=== PATIENT | male | born 1980 | race Caucasian/White ===

== ENCOUNTER 2016-08-01 19:15 | Emergency (ER) | payer BC, OTHER ==
[2016-08-01 19:24] VITALS: BP 150/107
--- NOTE | 2016-08-01 19:32 | EDM.PDOC ---
ED HPI GENERAL MEDICAL PROBLEM - General Chief Complaint: ENT Problem Stated Complaint: TOOTHACHE Time Seen by Provider: 08/01/16 19:21 Source of Information: Reports: Patient, RN, RN Notes Reviewed History Limitations: Reports: No Limitations - History of Present Illness INITIAL COMMENTS - FREE TEXT/NARRATIVE: Patient presents to the ED at [facility] complaining of dental pain. Patient states the pain began a few days ago. He states he is scheduled for a root canal on August 18 in [place] with an Machine Or Machinery Mechanic. He complains of upper left jaw pain. He states he feels very nauseated. He has not vomited. He denies any percussion sensitivity when eating. Duration: Constant, Getting Worse Left Upper Tooth/Teeth Pain Score (Numeric/FACES): 10 - Related Data Allergies Allergy/AdvReac Type Severity Reaction Status Date / Time No Known Allergies Allergy Verified 08/01/16 19:24 Home Meds: Home Meds PARoxetine HCl [Paroxetine HCl] 30 mg PO DAILY 08/01/16 [History] Past Medical History Psychiatric History: Reports: Depression ED ROS GENERAL - Review of Systems Review Of Systems: See Below Constitutional: Denies: Fever, Chills, Weakness HEENT: Reports: Dental Pain Respiratory: Denies: Shortness of Breath, Cough Cardiovascular: Denies: Chest Pain, Palpitations GI/Abdominal: Reports: Nausea. Denies: Abdominal Pain, Vomiting Skin: Reports: No Symptoms Neurological: Reports: No Symptoms ED EXAM, GENERAL - Physical Exam Exam: See Below Exam Limited By: No Limitations General Appearance: Alert, No Apparent Distress Throat/Mouth: Other (Molar #14 is sensitive; no obvious dental decay on visual exam; no abscess formation) Respiratory/Chest: No Respiratory Distress, Lungs Clear, Normal Breath Sounds Cardiovascular: Regular Rate, Rhythm GI/Abdominal: Normal Bowel Sounds, Soft, Non-Tender Neurological: Alert, Oriented Skin Exam: Warm, Dry, Intact, Normal Color, No Rash ED GENERAL MEDICAL PROCEDURES - Additional/Other Procedure(s) Other (Free Text) Procedure(s): Dental Block: Upper left jaw/buccal region; area anesthetized with 5cc 1% Lidocaine with 2cc 0.5% Marcaine. Patient tolerated procedure well. No complications. Patient had completed relief of dental pain s/p dental block. Course - Vital Signs Last Recorded V/S: Last Vital Signs Temp 35.9 C 08/01/16 19:19 Pulse 75 08/01/16 19:19 Resp 16 08/01/16 19:19 BP 150/107 H 08/01/16 19:19 Pulse Ox 98 08/01/16 19:19 - Orders/Labs/Meds Orders: Active Orders 24 hr Category Date Time Status Bupivacaine 0.5% [Marcaine 0.5%] Med 08/01/16 19:34 Active 30 ml INJECT ASDIRECTED PRN Medication Orders Bupivacaine HCl (Marcaine 0.5%) 30 ml INJECT ASDIRECTED PRN PRN Reason: Other Meds: Medications Generic Name Dose Route Start Last Admin Trade Name Freq PRN Reason Stop Dose Admin Bupivacaine HCl 30 ml 08/01/16 19:34 Marcaine 0.5% INJECT ASDIRECTED PRN Other Discontinued Medications Generic Name Dose Route Start Last Admin Trade Name Freq PRN Reason Stop Dose Admin Lidocaine HCl 5 ml 08/01/16 19:33 Xylocaine-Mpf 1% INJECT 08/01/16 19:34 ONETIME ONE Ondansetron HCl 2 packet 08/01/16 19:34 Take Home: Ondansetron Odt 4 Mg, 2 Tab Pack PO 08/01/16 19:35 ONETIME ONE Ondansetron HCl 4 mg 08/01/16 19:43 Zofran IM 08/01/16 19:44 ONETIME ONE Tramadol HCl 1 packet 08/01/16 19:35 Take Home: Tramadol 50 Mg, 4 Tab Pack PO 08/01/16 19:36 ONETIME ONE Departure - Departure Time of Disposition: 19:37 Disposition: Home, Self-Care 01 Condition: good Clinical Impression: Pain, dental - Discharge Information Referrals: PCP,None [Primary Care Provider] - Forms: ED Department Discharge Additional Instructions: 1. Stay well hydrated and rest 2. Call and see if you can move up your dental appointment KRISTIN 3. Take medications as directed as needed 4. See your Primary as symptoms warrant - Problem List Review Problem List Initiated/Reviewed/Updated: Yes - My Orders Last 24 Hours: My Active Orders 08/01/16 19:34 Bupivacaine 0.5% [Marcaine 0.5%] 30 ml INJECT ASDIRECTED PRN - Assessment/Plan Last 24 Hours: My Active Orders 08/01/16 19:34 Bupivacaine 0.5% [Marcaine 0.5%] 30 ml INJECT ASDIRECTED PRN
[2016-08-01] MEDS ORDERED: Take Home: Ondansetron 4 MG Tab.DIS, 2 Tab Pack PO ONE (19:34)
[2016-08-01] MEDS ORDERED: Bupivacaine 0.5% 30 ML SDV INJECT PRN (19:34)
[2016-08-01] MEDS ORDERED: Take Home: traMADol 50 MG, 4 Tab Pack PO ONE (19:35)
[2016-08-01] MEDS ORDERED: Ondansetron 4 MG/2 ML SDV IM ONE (19:43)
== END 2016-08-01 20:07 | disposition home or self-care (01) ==
LOC: VM.ED 19:15
DX: K08.89 Other specified disorders of teeth and supporting structures (principal); Z79.899 Other long term (current) drug therapy
CPT/HCPCS: 64400; 96372; 99282; A9270; J2405

== ENCOUNTER 2016-12-10 11:48 | Emergency (ER) | payer BC ==
[2016-12-10 11:58] VITALS: BP 150/103
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
[2016-12-10] MEDS ORDERED: Diphtheria,Pertussis(Acell),Tetanus Vaccine 0.5 ML Syringe IM ONE (13:08)
== END 2016-12-10 13:28 | disposition home or self-care (01) ==
LOC: VM.ED 11:48
DX: S61.211A Laceration without foreign body of left index finger without damage to nail, initial encounter (principal); Z23 Encounter for immunization; W29.8XXA Contact with other powered hand tools and household machinery, initial encounter; Y99.0 Civilian activity done for income or pay
CPT/HCPCS: 12001; 73140-F1; 90471; 90715; 99283

== ENCOUNTER 2018-08-29 19:44 | Emergency (ER) | payer BC ==
[2018-08-29 20:04] VITALS: BP 149/96; PULSE 96
[2018-08-29] MEDS ORDERED: Ketorolac 30 MG/ML SDV IM ONE (20:07)
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
--- NOTE | 2018-08-30 15:16 | CR ---
[id number] RAD/RAD Chest PA And Lateral EXAM: RAD Chest PA And Lateral INDICATION: CHEST INJURY COMPARISON: September 2011. DISCUSSION: Cardiomediastinal silhouette is normal in size and contour. No infiltrate, effusion, pneumothorax, or edema. Multiple chronic bilateral fractures. No evidence of an acute fracture on this examination. IMPRESSION: No acute findings in the chest. Rakan Degroot MD 08/30/18 0805 Thank you for allowing us to participate in the care of your patient.
== END 2018-08-29 21:00 | disposition home or self-care (01) ==
LOC: VM.ED 19:44 → SUPCPDRO 19:44 → VM.ED 21:00
DX: M94.0 Chondrocostal junction syndrome [Tietze] (principal); F32.9 Major depressive disorder, single episode, unspecified; Z79.899 Other long term (current) drug therapy
CPT/HCPCS: 71046; 96372; 99284; J1885

== ENCOUNTER → 2018-09-19 17:28 | Emergency (ER) | payer BC | END | disposition left against medical advice (07) | LOC: VM.ED 17:28 | DX: Z53.21 Procedure and treatment not carried out due to patient leaving prior to being seen by health care provider (principal) ==

== ENCOUNTER 2022-09-22 19:59 | Emergency (ER) | payer BC, OTHER ==
[2022-09-22] MEDS ORDERED: Sodium Chloride 0.9% 10 ML Syringe FLUSH PRN (20:13)
[2022-09-22 20:30] LABS: BASOPHILS ABSOLUTE AUTO 0.1 x10^3/uL (0.0-0.2); BASOPHILS PERCENT AUTO 0.6 % (0.2-1.2); EOSINOPHILS ABSOLUTE AUTO 0.2 x10^3/uL (0.0-0.5); EOSINOPHILS PERCENT AUTO 2.5 % (0.0-4.0); HEMATOCRIT 42.2 % (40.0-52.0); HEMOGLOBIN 15.3 g/dL (14.0-18.0); IMMATURE GRAN ABSOLUTE AUTO 0.01 x10^3/uL (0.00-0.07); LYMPHOCYTES ABSOLUTE AUTO 3.4 x10^3/uL (1.0-4.8); MEAN CORPUSCULAR HEMOGLOBIN 30.8 pg (26.0-32.0); MEAN CORPUSCULAR HGB CONC 36.3 g/dL (32.0-36.0); MEAN CORPUSCULAR VOLUME 85.1 fL (78.0-93.0); MONOCYTES ABSOLUTE AUTO 0.7 x10^3/uL (0.0-0.8); MONOCYTES PERCENT AUTO 8.1 % (2.0-11.0); NEUTROPHILS ABSOLUTE AUTO 4.5 x10^3/uL (1.8-7.7); NEUTROPHILS PERCENT AUTO 50.7 % (50.0-80.0); PLATELET COUNT,PLT 269 x10^3/uL (130-400); RED BLOOD CELL COUNT 4.96 x10^6/uL (4.5-6.0); WHITE BLOOD CELL COUNT,WBC 8.9 x10^3/uL (4.0-10.0)
[2022-09-22 20:49] LABS: PROTHROMBIN TIME 10.3 SEC (9.5-12.2); PTT,PARTIAL THROMBOPLSTIN TIME 27.9 SEC (23.6-33.6)
[2022-09-22 21:00] LABS: A/G RATIO 1.11; BILIRUBIN TOTAL 0.3 mg/dL (0.2-1.0); CALCIUM 8.8 mg/dL (8.5-10.1); CREATININE 1.1 mg/dL (0.70-1.30); EST CRCL DRUG DOSING (CG) 84.64 mL/min; MAGNESIUM 1.9 mg/dL (1.8-2.4); POTASSIUM,K 3.5 mmol/L (3.5-5.1); PROTEIN TOTAL,TP 7.6 g/dL (6.4-8.2); TSH ULTRASENSITIVE 2.462 uIU/mL (0.358-3.74)
[2022-09-22 21:02] LABS: ANION GAP 12.5 mmol/L (5-15)
[2022-09-22 22:04] VITALS: BP 138/92; PULSE 64
== END 2022-09-22 21:47 | disposition home or self-care (01) ==
LOC: VM.ED 19:59
DX: I10 Essential (primary) hypertension (principal); Z87.891 Personal history of nicotine dependence; Z79.899 Other long term (current) drug therapy
CPT/HCPCS: 70450; 80053; 83735; 84443; 85025; 85610; 85730; 93005; 93010; 99284